=== PATIENT | male | born 1975 | race Two or more races ===

== ENCOUNTER 2022-10-26 13:33 | Outpatient (CLI) | payer OTHER | END 2022-10-26 23:59 | disposition home or self-care (01) | LOC: LAB 13:33 | PROVIDERS: ATTEND Specialist | DX: Z01.812 Encounter for preprocedural laboratory examination (principal); Z20.822 Contact with and (suspected) exposure to COVID-19 | CPT/HCPCS: U0003; C9803 ==

== ENCOUNTER 2022-11-02 05:19 | Day surgery (SDC) | payer OTHER ==
--- NOTE | 2022-11-02 05:35 | NUR ---
RN NOTE; RECEIVED PT FROM ER AMBULATORY ACCOMPANY BY MOTHER IN RM 322-2,AOX4 ABLE TO MAKE NEEDS KNOWN,NO SIGN SOB/DISTRESS NOTED.PT STATED HAD RT EAR SURGERY HE GENERALIZE ANESTHESIA IN HIS BLOOD PRESSURE DROPS AND HARD TO WAKE UP.
[2022-11-02] MEDS ORDERED: ANESTHESIA TRAY IN PYXIS 1 EA TRAY MC ONE (05:54)
[2022-11-02] MEDS ORDERED: SEVOFLURANE 250 ML BOTTLE IH ONE (05:55)
[2022-11-02] MEDS ORDERED: FENTANYL PF 100MCG/2ML AMPUL ONE ×2 (06:06→07:33)
[2022-11-02] MEDS ORDERED: BUPIVACAINE 0.25% 75 MG/30 ML VIAL ONE (06:24)
--- NOTE | 2022-11-02 06:35 | NUR ---
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
--- NOTE | 2022-11-02 07:00 | NUR ---
MS RN OPENING NOTE PATIENT OFF OF UNIT FOR PROCEDURE, WILL ASSESS PATIENT UPON RETURN
--- NOTE | 2022-11-02 08:38 | NUR ---
MS RN NOTES PATIENT RETURNED TO UNIT, A/O X 3, ABLE TO MAKE NEEDS KNOWN, SLING IN PLACE ON LEFT ELBOW, TOLERATING WELL ON ROOM AIR WITH NO S/S RESPIRATORY DISTRESS. TO BE DISCHARGED WHEN COMFORTABLE. SAFETY MEASURES IN PLACE: BED IN LOWEST LOCKED POSITION, SIDE RAILS UP X 2, CALL LIGHT WITHIN REACH. WILL CONTINUE TO MONITOR
[2022-11-02] MEDS ORDERED: HYDROCODONE/APAP 10/325MG TABLET PO PRN (09:00)
--- NOTE | 2022-11-02 10:09 | NUR ---
MS AUTOMOTIVE PROJECT ENGINEER NOTES PATIENT MADE AWARE OF MD DISCHARGE ORDERS AND INSTRUCTIONS. PATIENT SIGNED MD DISCHARGE INSTRUCTIONS SHEET. PATIENT VERBALIZED POSSESSION OF ALL BELONGINGS AND SIGNED BELONGINGS SHEET. IV LINE AND ID BAND REMOVED. PATIENT DISCHARGED FROM UNIT ACCOMPANIED BY CARDIOLOGY TECH. PATIENT STABLE AT TIME OF DISCHARGE.
== END 2022-11-02 18:00 | disposition home or self-care (01) ==
LOC: DS 05:19 → UNDOADMIN 05:21 → MED 05:21 → UNDODISIN 11:00 → DS 18:00
PROVIDERS: ATTEND Specialist
DX: G56.22 Lesion of ulnar nerve, left upper limb (principal); Z20.822 Contact with and (suspected) exposure to COVID-19
CPT/HCPCS: 64718; 84132; 36415; J0690; J1100; J2704; J3010 ×2; J3490 ×2; J0330; J2405; J7030; A4565; A6402; G0378